=== PATIENT | male | born 1965 | race Caucasian/White ===

== ENCOUNTER 2020-05-28 07:02 | Emergency (ER) | payer BC ==
[2020-05-28 07:08] VITALS: RESP 18; TEMP 98.4
[2020-05-28] MEDS ORDERED: ONDANSETRON 4 MG/2 ML VIAL IVP STA (07:15)
[2020-05-28] MEDS ORDERED: HYDROmorphone 0.5 MG/0.5 ML SYRINGE IVP STA ×3 (07:15→10:48)
--- NOTE | 2020-05-28 07:20 | ED ---
General Adult HPI - General Chief complaint: Extremity Injury, Upper Stated complaint: R ARM TRAUMA Time Seen by Provider: 05/28/20 07:10 Source: patient, EMS, RN notes reviewed Mode of arrival: EMS Limitations: no limitations - History of Present Illness Initial comments: Patient's a 55-year-old male presented to the emergency room today with a chief complaint of injury to the right forearm that occurred just prior to arrival. Patient states that he was helping change a tire. He states that the javed slipped out. He states that the wheel well of the car came down hitting him on the forearm which pinched him against the tire that was outside. Patient states he was able to pull his arm out was not stuck. Patient states he feels pain in the right forearm and noticed deformity. EMS was called he did get 4 mg of morphine which did help with some of his pain. Patient states he has feeling down into the fingertips. He states he can move his fingers. He denies any other injury or any other complaints. He states is not on any blood thinners. - Related Data Home Medications Medication Instructions Recorded Confirmed No Known Home Medications 05/28/20 05/28/20 Allergies Allergy/AdvReac Type Severity Reaction Status Date / Time No Known Allergies Allergy Verified 05/28/20 07:43 Review of Systems ROS Statement: Those systems with pertinent positive or pertinent negative responses have been documented in the HPI. ROS Other: All systems not noted in ROS Statement are negative. Past Medical History Past Medical History: No Reported History History of Any Multi-Drug Resistant Organisms: None Reported Past Surgical History: Orthopedic Surgery Past Psychological History: No Psychological Hx Reported Smoking Status: Never smoker Past Alcohol Use History: None Reported Past Drug Use History: None Reported General Exam - General Exam Comments Initial Comments: General: The patient is awake and alert, in no distress, and does not appear acutely ill. Eye: extra-ocular movements are intact. No nystagmus. There is normal conjunctiva bilaterally. No signs of icterus. Ears, nose, mouth and throat: There are moist mucous membranes and no oral lesions. Neck: The neck is supple, there is no tenderness or JVD. Respiratory: Lungs are clear to auscultation, respirations are non-labored. Musculoskeletal: Patient does have abnormal appearance the right forearm with distal third. His radial pulses 2+. Sensations are intact. Cap refill less than 2 seconds. No tenderness to the right elbow or down into the right wrist. Neurological: A&O x 3. CN II-XII intact, There are no obvious motor or sensory deficits. Coordination appears grossly intact. Speech is normal. Skin: Skin is warm and dry and no rashes or lesions are noted. Psychiatric: Cooperative, appropriate mood & affect, normal judgment. Limitations: no limitations Course Vital Signs 05/28/20 05/28/20 05/28/20 07:04 08:28 09:10 Temperature 98.4 F Pulse Rate 80 74 82 Respiratory 18 18 18 Rate Blood Pressure 157/97 153/100 161/105 O2 Sat by Pulse 97 96 95 Oximetry 05/28/20 10:28 Temperature Pulse Rate 85 Respiratory 18 Rate Blood Pressure 139/99 O2 Sat by Pulse Oximetry Medical Decision Making - Medical Decision Making Patient's x-ray reviewed does show a closed distal third fracture of the distal radius and ulna that is displaced. Patient's cap refill less than 2 seconds with radial pulses 2+. Patient shows good range of motion of his fingers. Patient is discussed with orthopedist on-call who recommends patient be transferred. Case was discussed with orthopedic trauma Dr. Eleazar Walden who will accept admission. Patient has been splinted in a sugar tong splint on the right. Placed by myself. Neurovascular was rechecked and intact. Patient will be transferred via ambulance. Disposition Clinical Impression: Forearm fracture Disposition: OTHER INSTITUTION NOT DEFINED Condition: Stable Is patient prescribed a controlled substance at d/c from ED?: No Referrals: None,Stated [Primary Care Provider] - 1-2 days Time of Disposition: 10:32 (Transfer to [facility] by ambulance) - Out of Hospital Transfer - Req. Specs Out of Hospital Transfer - Requested Specifics: Other Emergency Center ([facility])
--- NOTE | 2020-05-28 07:49 | XR ---
EXAMINATION TYPE: XR forearm RT DATE OF EXAM: 05/28/2020 COMPARISON: NONE HISTORY: 55-year-old male with injury and pain TECHNIQUE: 2 views FINDINGS: Transverse fractures of the mid to distal third both bone shafts showing a full shafts width of ulnar sided displacement. There is also half a shaft width of dorsal displacement. Underlying degenerative change of the radiocapitellar joint. Corticated ossific densities at the lateral epicondyles suggest ing chronic extensor tendinopathy. IMPRESSION: 1. Transverse both bone fractures at the mid to distal third shaft level with carmen one shaft's width of ulnar displacement and half a shaft's width of dorsal displacement. 2. Degenerative change at the radiocapitellar joint and chronic tendinopathy of the common extensor t endon origin
[2020-05-28 10:29] VITALS: BP 139/99; PULSE 85
== END 2020-05-28 11:01 | disposition other institution (70) ==
LOC: EC 07:02
DX: S52.501A Unspecified fracture of the lower end of right radius, initial encounter for closed fracture (principal); S52.601A Unspecified fracture of lower end of right ulna, initial encounter for closed fracture; W22.8XXA Striking against or struck by other objects, initial encounter; Y93.89 Activity, other specified; Y92.89 Other specified places as the place of occurrence of the external cause
CPT/HCPCS: 73090; 99284; 96374; 96375; 96376 ×2; 29105; J2405; J1170

== ENCOUNTER → 2021-12-17 | Outpatient (CLI) | payer BC ==
--- NOTE | 2021-12-17 11:48 | CA ---
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 MYOCARDIAL INFARCTION ICD-10 Codes: Patient History: Hypertension Medications: CELEBREX,,,,,, LISINOPRIL,,,,, Meds past 24 hrs: Pretest Chest Pain: STRESS TEST Oscar Protocol Exercise Duration (min:sec): 09:[address] Depressions (mm): Angina Score: Key Score: Resting HR (bpm): 70 Peak HR (bpm): 166 Resting BP (mmHg): 124 / 92 Peak BP (mmHg): 201 / 96 MPHR: 163 Target HR: 139 % MPHR: 102 METS: 10.3 Total Dose: Peak Dose: Atropine: Double Product: 87990 BP Response: Stress Termination: TARGET HR REACHED/MAX EXERTION Stress Symptoms: NO SYMPTOMS Stress Summary: ECG ANALYSIS Resting ECG: Normal sinus rhythm normal axis normal intervals Stress ECG: At peak exercise there was [address] segment depression in inferolateral leads CONCLUSIONS Good exercise tolerance Abnormal stress test by EKG criteria Dr. Russel Meyer MD (Electronically Signed) Final Date: 17 December 2021 11:47
== END | disposition home or self-care (01) ==
LOC: RADNMMAIN 08:22
PROVIDERS: ATTEND Family Medicine
DX: I25.2 Old myocardial infarction (principal); I10 Essential (primary) hypertension; R94.31 Abnormal electrocardiogram [ECG] [EKG]
CPT/HCPCS: 93017